=== PATIENT | male | born 1960 | race Caucasian/White ===

== ENCOUNTER 2018-07-25 15:20 | Emergency (ER) ==
[2018-07-25] MEDS ORDERED: Ketorolac Tromethamine 30 MG/ML VIAL ONE (15:36)
[2018-07-25] MEDS ORDERED: Ondansetron ODT 4 MG TAB ONE ×2 (15:36→15:59)
--- NOTE | 2018-07-25 15:52 | RAD ---
CHEST 2 VIEWS: HISTORY: Trauma. COMPARISON: None. FINDINGS: Mild elevation of the left hemidiaphragm with prominent gastric bubble. Two separate dorsal column s timulator leads are present. No pneumothorax. No acute osseous abnormality. No displaced rib fracture. IMPRESSION: Chronic findings. No acute abnormality. POS: [facility]
--- NOTE | 2018-07-25 15:59 | RAD ---
THREE VIEW RIGHT SHOULDER: 07/25/18 INDICATION: Posttraumatic pain. There is mild osteoarthritis of the right shoulder. No fracture or dislocation apparent. IMPRESSION: No acute osseous abnormality of the right shoulder. POS: [facility]
== END 2018-07-25 16:27 | disposition home or self-care (01) ==
LOC: MADERS 15:20
DX: S40.011A Contusion of right shoulder, initial encounter (principal); F43.10 Post-traumatic stress disorder, unspecified; K21.9 Gastro-esophageal reflux disease without esophagitis; F41.9 Anxiety disorder, unspecified; F32.9 Major depressive disorder, single episode, unspecified; I10 Essential (primary) hypertension; Z79.899 Other long term (current) drug therapy; Z79.82 Long term (current) use of aspirin; V49.9XXA Car occupant (driver) (passenger) injured in unspecified traffic accident, initial encounter
CPT/HCPCS: 71046; 96372; J1885; Q0162